=== PATIENT | female | born 1980 ===

== ENCOUNTER 2024-11-22 06:21 | Day surgery (SDC) | payer BC, SELFPAY ==
[2024-11-07 11:35] LABS: Hematocrit 34.1 % (37.0-47.0); Hemoglobin 10.0 g/dL (12.0-16.0); Mean Corp Hgb Conc. 29.3 g/dL (33.0-37.0); Mean Corpuscular Volume 69.6 fL (81.0-99.0); Platelet Count 219 10^3/uL (130-400); Red Cell Dist. Width 17.1 % (11.5-14.5)
[2024-11-07 11:43] LABS: APTT 28.3 Sec (23.4-35.0); INR 1.02; PT 13.7 Sec (11.4-14.6)
[2024-11-07 12:11] LABS: ALT (SGPT) 16 U/L (0-35); AST (SGOT) 19 U/L (14-36); Albumin 4.6 g/dl (3.5-5.0); Alkaline Phosphatase 55 U/L (38-126); Blood Urea Nitrogen 10 mg/dl (7-17); Calcium 9.3 mg/dl (8.4-10.2); Carbon Dioxide 26 mmol/L (22-30); Chloride 105 mmol/L (98-107); Glucose 101 mg/dl (70-99); Potassium 4.7 mmol/L (3.5-5.1); Sodium 138 mmol/L (135-145); Total Protein 7.9 g/dl (6.3-8.2); eGFR > 60.00
[2024-11-07 14:04] VITALS: BMI 30.7
[2024-11-22] VITALS (8 sets, daily range): BP systolic 129–179; BP diastolic 80–104; BMI 30.7
[2024-11-22] MEDS: TYLENOL 1000 MG PO (09:17)
[2024-11-22] MEDS: NEURONTIN 300 MG PO (09:17)
[2024-11-22] MEDS: NORMOSOL-R/PLASMALYTE-A 1000 IV (09:28)
[2024-11-22] MEDS: HEPARIN 5000 UNITS SC (09:38)
--- NOTE | 2024-11-22 12:52 | OR.RPT ---
Operative Report
Operative Report
Date of Operation: November 22, 2024
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
Postoperative Diagnosis: Same
Surgeon: Jos Mcgovern M.D.
Operation: Resection of the left neck soft tissue tumor - 51848 (7 cm)
Anesthesia: General
Estimated Blood Loss: 3 cc
Drains: None
Specimen: a large left neck soft tissue tumor
Complications: None
Procedure:
The patient was taken to the operating room and placed in the usual supine position. After establishing adequate general anesthesia, the patient's left neck and upper chest were prepped and draped in the typical sterile manner. An incision was made
along the anterior border of the SCM muscle, and the platysma muscle was divided. The SCM was retracted laterally, revealing a large tumor located between the left carotid artery and the internal jugular vein. The tumor extended from the left
submandibular area to the left supraclavicular region and was adjacent to the left thyroid lobe. It was carefully dissected away from the left carotid artery, internal jugular vein, and thyroid lobe. The left vagus nerve was identified and preserved
by dissecting off the tumor. The tumor was completely excised and sent to pathology. After achieving adequate hemostasis, the incision was closed in multiple layers. The platysma was reapproximated with #3-0 Vicryl in an interrupted fashion, and the
skin was closed with #4-0 Monocryl in a running subcuticular technique. Steri-Strips and sterile dressings were applied to the incisions. The patient tolerated the procedure well. Final instrument, needle, and sponge counts were correct. The patient
was extubated and transferred to the recovery room.
== END 2024-11-22 13:40 | disposition home or self-care (01) ==
LOC: SDS 06:21
PROVIDERS: ATTENDING PHYSICIAN Surgery; FAMILY PHYSICIAN Internal Medicine
DX: D17.0 Benign lipomatous neoplasm of skin and subcutaneous tissue of head, face and neck (principal)
CPT/HCPCS: 21016; 36415; 80053; 85027; 85610; 85730; 88304; 93005